=== PATIENT | male | born 1995 | race Caucasian/White ===

== ENCOUNTER 2019-11-25 01:37 | Emergency (ER) | payer BC ==
[2019-11-25] MEDS ORDERED: NORCO 5/325 MG PO ONE (01:58)
--- NOTE | 2019-11-25 01:58 | ERPHSYRPT ---
- History of Present Illness Time Seen by Provider: 11/25/19 01:45 Source: patient Exam Limitations: no limitations Patient Subjective Stated Complaint: pt states he has an earache that started yesterday at home. describes pain as throbbing and pressure Triage Nursing Assessment: pt alert and oriented, answers questions approp. pt ambualtory with steady gait noted. respirations nonlabored with lungs cta. skin pink warm and dry. redness noted to lt ear. no drainage noted. Physician History: ppatient is a 24-year-old white male who has had recent upper respiratory infection symptoms. Who awoke with the increasing left ear pain which started last evening. Timing/Duration: gradual onset Severity: moderate ENT Location: ear (L) Prearrival Treatment: no prearrival treatment Modifying Factors: Improves With: activity Associated Symptoms: ear pain (L), cough, change in hearing, nasal congestion/ drainage Hx Tetanus, Diphtheria Vaccination/Date Given: Yes (2018) Hx Influenza Vaccination/Date Given: No Hx Pneumococcal Vaccination/Date Given: No - Review of Systems Constitutional: No Fever, No Chills Eyes: No Symptoms Ears, Nose, & Throat: Ear Pain, Nose Discharge Respiratory: No Cough, No Dyspnea Cardiac: No Chest Pain, No Edema, No Syncope Abdominal/Gastrointestinal: No Abdominal Pain, No Nausea, No Vomiting, No Diarrhea Genitourinary Symptoms: No Dysuria Musculoskeletal: No Back Pain, No Neck Pain Skin: No Rash Neurological: No Dizziness, No Focal Weakness, No Sensory Changes Psychological: No Symptoms Endocrine: No Symptoms All Other Systems: Reviewed and Negative - Past Medical History Pertinent Past Medical History: No - Past Surgical History Past Surgical History: Yes Gastrointestinal: Appendectomy - Social History Smoking Status: Never smoker Exposure to second hand smoke: No Drug Use: none Patient Lives Alone: Yes - Nursing Vital Signs Nursing Vital Signs: Initial Vital Signs Temperature 98.3 F 11/25/19 01:43 Pulse Rate 91 H 11/25/19 01:43 Respiratory Rate 16 11/25/19 01:43 Blood Pressure 148/102 11/25/19 01:43 O2 Sat by Pulse Oximetry 100 11/25/19 01:43 Pain Scale Pain Intensity 7 - Physical Exam General Appearance: no apparent distress, alert Eye Exam: bilateral eye: PERRL, EOMI Ear Exam: left ear: TM red, TM bulging Nasal Exam: normal inspection Throat Exam: pharynx normal, moist mucus membranes, No tonsillar exudate Neck Exam: supple Cardiovascular/Respiratory Exam: normal breath sounds, regular rate/rhythm Abdominal Exam: non-tender, soft Neurologic Exam: alert, oriented x 3, sensation nml, No motor deficits Skin Exam: normal color, warm, dry SpO2: 100 - Course Nursing assessment & vital signs reviewed: Yes - Progress Progress: unchanged - Departure Departure Disposition: Home Clinical Impression: Left otitis media Condition: Stable Critical Care Time: No Referrals: YANETH BENITEZ [Primary Care Provider] - Instructions: Ear Infections (Otitis Media) (DC) Prescriptions: Hydrocodone/APAP 5-325 Tab^^^ [Hadley 5-325 Tablet^^^] 1 tab PO Q4HPRN PRN #5 tablet MDD 6 PRN Reason: Pain Amoxicillin 875 mg PO BID 10 Days #20 tablet
[2019-11-25] MEDS ORDERED: AMOXIL 500 MG PO ONE (01:59)
[2019-11-25] MEDS ORDERED: NORCO 5/325 MG ONE (02:00)
[2019-11-25] MEDS ORDERED: AMOXIL 500 MG ONE (02:01)
[2019-11-25 02:28] VITALS: BP 133/98; PULSE 88; O2SAT 99
== END 2019-11-25 02:25 | disposition home or self-care (01) ==
LOC: ED 01:37
DX: H66.92 Otitis media, unspecified, left ear (principal)
CPT/HCPCS: 99283; A9270-GY